=== PATIENT | female | born 1965 | race Caucasian/White ===

== ENCOUNTER 2017-06-20 05:51 | Day surgery (SDC) | payer OTHER ==
[2017-06-19 11:04] LABS: BASOPHILS 0.1 % (0-2); EOSINOPHILS 0.3 % (0-7); HEMATOCRIT 40.6 % (36.0-48.0); HEMOGLOBIN 13.7 g/dL (12-16); IMMATURE GRANULOCYTES 0.1 % (0-5); LYMPHOCYTES 9.7 % (15-50); MCH 28.8 pg (26.0-34.0); MCHC 33.7 g/dL (31.0-37.0); MCV 85.5 fL (80.0-100.0); MEAN PLATELET VOLUME 9.8 fL (7.4-10.4); MONOCYTES 4.5 % (2-11); NEUTROPHILS 85.3 % (40-80); PLATELET COUNT 355 10x3/uL (130-400); RBC 4.75 10x6/uL (4.00-5.40); RDW 12.8 % (11.5-14.5); WBC 10.3 10x3/uL (4.8-10.8)
[2017-06-19 11:13] LABS: ANION GAP 13.6 mmol/L (8-16); CALCIUM 9.1 mg/dL (8.5-10.1); CARBON DIOXIDE 28.7 mmol/L (21.0-32.0); POTASSIUM - SERUM 3.3 mmol/L (3.5-5.1)
[~2017-06-20] VITALS: Ht 157.5 cm; Wt 59.0 kg
--- NOTE | ~2017-06-20 | OP ---
PATIENT NAME: MATTHEW SOLIS MEDICAL RECORD: [id number] :63 LOCATION:D.OPS ADMISSION DATE: SURGEON: GWENDOLYN HESS MD DATE OF OPERATION: 06/20/2017 PREOPERATIVE DIAGNOSES: 1. Umbilical hernia. 2. Thyroid disease. POSTOPERATIVE DIAGNOSES: 1. Umbilical hernia. 2. Thyroid disease. PROCEDURE: Umbilical hernia repair without mesh. SURGEON: Gwendolyn Hess MD REPORT OF PROCEDURE: The patient's abdomen was prepped and draped in sterile fashion. A semicircular incision was made on the inferior aspect of the umbilicus. Electrocautery was used to dissect through the subcutaneous tissues. We came through the hernia sac just below the umbilical stalk. The patient was noted to have little bit less than 1 cm hernia defect present. Just above this, there was another very small pinpoint hernia defect with some fatty tissue extending through it. The fatty tissue was freed up on all edges. Interrupted 0 Prolenes were used times 3 to close the larger of the 2 hernia defects and a single interrupted 0 Prolene was used to close the smaller defect, which was just above it. Both defects were in the midline and closed easily with no sign of any tension. At the conclusion of this, there was no sign of any active bleeding. The umbilicus was tacked down to the fascia using an interrupted 3-0 Vicryl and the subcutaneous tissues were reapproximated with interrupted 3-0 Vicryls. The skin was closed with running subcutaneous 5-0 Monocryl. A total of 10 mL of 0.25% Marcaine plain was infused in the tissues around the umbilicus. We then dressed the wound appropriately. COMPLICATIONS: None. CONDITION: Stable. ANESTHESIA: General endotracheal and local. BLOOD LOSS: Minimal. TRANSINT:[id number] Voice Confirmation ID: [id number] DOCUMENT ID: [id number] GWENDOLYN HESS MD at 0956 CC: LUCRECIA SADLER MD [id number] DICTATION DATE: 06/20/17 0838 NEIGHBORHOOD COORDINATOR: 06/20/17 1149 [facility] 06/20/17 [place] [id number]
[~2017-06-20 05:51] MED LIST: SYNTHROID50 MCG PO
[2017-06-20 06:27] VITALS: BP 116/77; Ht 157.5 cm; Wt 59.0 kg
[2017-06-20 07:18] LABS: HCG URINE NEGATIVE (NEGATIVE)
[2017-06-20] MEDS ORDERED: HYDROCODONE-APA1 TAB PO (08:31)
== END 2017-06-20 10:40 | disposition home or self-care (01) ==
LOC: D.OPS 05:51 → D.PAN 08:00 → D.OPS 08:00
PROVIDERS: Surgery
DX: K42.9 Umbilical hernia without obstruction or gangrene (principal); E03.9 Hypothyroidism, unspecified; Z01.812 Encounter for preprocedural laboratory examination

== ENCOUNTER → 2017-07-11 14:30 | Outpatient (CLI) | payer OTHER ==
[2017-06-20 06:27] VITALS: BMI 23.8
[~2017-07-11 14:30] MED LIST changes: +HYDROCODONE-APA1 TAB PO
== END | disposition home or self-care (01) ==
LOC: D.MAMMO 05-11 11:15
DX: Z12.31 Encounter for screening mammogram for malignant neoplasm of breast (principal)